=== PATIENT | female | born 1945 | race Two or more races ===

== ENCOUNTER 2021-04-01 08:50 | Inpatient (IN) | payer OTHER ==
[~2021-04-01] VITALS: Ht 160 cm; Wt 58.1 kg
[2021-04-01] MEDS ORDERED: COZAAR50 MG PO (09:02)
[2021-04-01] MEDS ORDERED: CRESTOR40 MG PO (09:02)
[2021-04-01] MEDS ORDERED: NORVASC2.5 M1 PO (09:02)
[2021-04-01] MEDS ORDERED: PLAVIX75 MG PO (09:02)
[2021-04-01] MEDS ORDERED: PRAVASTATIN SOD20 MG PO (09:03)
--- NOTE | 2021-04-01 09:14 | NUR ---
PACIENTE ALERTA Y ORIENTADA REFIERE QUE DESDE WARD PRESENTA TAQUICARDIA, HBP Y LBP, MAREOS Y PRESION EN EL PECHO. AL MOMENTO DEL TRIAGE REFIERE SENTIR MAREOS, SE REALIZA EKG Y SE PRESENTA A DR DE TURNO, SE MONITOREAN S/V Y SE UBICA EN CAMA 07.
--- NOTE | 2021-04-01 09:48 | NUR ---
PACIENTE EVALUADA POR DR YADIRA RIVERA [facility] [place] [facility], RN L.MEJIA ORIENTA PACIENTE SOBRE EL MISMO Y REFIERE ENTENDER, LE JOE MUESTRAS DE LABORATORIO Y LE CANALIZA BAJO MEDIDAS ASEPTICAS. SE MARK PACIENTE BAJO OBSERVACION POR CAMBIOS SIGNIFICATIVOS.
--- NOTE | 2021-04-01 12:32 | NUR ---
DR MAY MIGUEL DA ORDEN DE UBICAR A PACIENTE EN AREA DE CRITICO. LA MISMA SE UBICA EN CAMA #3 CONECTADA A MONITOR CARDIACO, RECIBIENDO O2 ASISTIDO POR MEDIO DE CANULA NASAL A 3L/MIN RICHA ORDEN MEDICAS. S/V ESTABLES AL MOMENTO. SE JOE TRAZADO DE MONITOR SE ADJUNTA A EXPEDIENTE. PENDIENTE CONSULTA CON MEDICINA INTERNA EL DR. REMINGTON MARKS Y CARDIOLOGO EL DR. REGAN MAN. SE MANTIENE EN OBSERVACION POR CAMBIOS.
--- NOTE | 2021-04-01 15:15 | NUR ---
SE RECIBE PTE FEMENINA ALERTA Y ORIENTADA EN LAS DMITRIY ESFERAS DEL TURNO ANTERIOR; EN CAMA #3 DE UNIDAD DE CRITICO. PTE CON BUEN PATRON RESPIRATORIO CON CANULA NASAL A 3LT/MIN SATURANDO AL 100% Y NO REFIERE DOLOR. VENOPUNCION PATENTE EN ANTEBRAZO R+ CON ANGIO #20, PATENTE VERNELL DE EDEMA Y ERITEMA RECIBIENDO TERAPIA DE IVFS 0.9NSS BAJANDO A 100ML/HR. PTE ORINANDO ESPONTANEO, SE ORIENTA SOBRE PROTOCOLO DE UNIDAD Y TRATAMIENTO REFIERE COMPRENDER. PTE EN CAMA NIVEL MAS BAJO CON BARANDAS ELEVADAS Y FRENOS COLOCADOS POR SEGURIDAD. PENDIENTE CONSULTA CON Y AMBAS NOTIFICADAS. SE KARY Y REPORTAN S/V, SE MANTIENE BAJO OBSERVACION POR CAMBIOS EN HUSTON CONDICION.
[2021-04-01] MEDS ORDERED: NEURONTIN300 MG PO (18:32)
[2021-04-02] MEDS ORDERED: MAXIMUM D3325 MCG (10:29)
[2021-04-02] MEDS ORDERED: CLONAZEPAM0.5 MG (10:30)
[2021-04-02] MEDS ORDERED: CETIRIZINE HCL10 MG (10:30)
[2021-04-02] MEDS ORDERED: FENOFIBRATE48 MG (10:30)
[2021-04-02] MEDS ORDERED: FAMOTIDINE40 MG (10:31)
[2021-04-03] MEDS ORDERED: LIPITOR40 MG PO (20:12)
[2021-04-03] MEDS ORDERED: LOSARTAN POTASS50 MG PO (20:12)
[2021-04-03] MEDS ORDERED: PEPCID AC20 MG PO (20:12)
[2021-04-03] MEDS ORDERED: ISOSORBIDE DINI20 MG PO (20:12)
[2021-04-03] MEDS ORDERED: BRILINTA90 MG PO (20:12)
[2021-04-03] MEDS ORDERED: BISACODYL5 MG PO (20:12)
== END 2021-04-04 07:33 | disposition home or self-care (01) | DRG 282 ==
LOC: ER 08:50 → MEDI 22:02
PROVIDERS: ADMIT Internal Medicine; ATTEND Internal Medicine
PROC: B24BZZZ Ultrasonography of Heart with Aorta (ICD-10-PCS; 2021-04-01)
PROC: BW28ZZZ Computerized Tomography (CT Scan) of Head (ICD-10-PCS; 2021-04-01)
PROC: 4A12X4Z Monitoring of Cardiac Electrical Activity, External Approach (ICD-10-PCS; principal; 2021-04-02)
DX: I24.9 Acute ischemic heart disease, unspecified (principal); I21.4 Non-ST elevation (NSTEMI) myocardial infarction; I35.0 Nonrheumatic aortic (valve) stenosis; E86.0 Dehydration; E87.8 Other disorders of electrolyte and fluid balance, not elsewhere classified; I95.89 Other hypotension; K59.09 Other constipation; I10 Essential (primary) hypertension; E11.69 Type 2 diabetes mellitus with other specified complication; Z79.4 Long term (current) use of insulin; E78.49 Other hyperlipidemia; Z20.822 Contact with and (suspected) exposure to COVID-19

== ENCOUNTER 2023-04-05 13:57 | Emergency (ER) | payer OTHER ==
[~2023-04-05] VITALS: Ht 160 cm; Wt 56.7 kg
[~2023-04-05 13:57] MED LIST: BISACODYL5 MG PO; BRILINTA90 MG PO; CETIRIZINE HCL10 MG; CLONAZEPAM0.5 MG; COZAAR50 MG PO; CRESTOR40 MG PO; FAMOTIDINE40 MG; FENOFIBRATE48 MG; ISOSORBIDE DINI20 MG PO; LIPITOR40 MG PO; LOSARTAN POTASS50 MG PO; MAXIMUM D3325 MCG; NEURONTIN300 MG PO; NORVASC2.5 M1 PO; PEPCID AC20 MG PO; PLAVIX75 MG PO; PRAVASTATIN SOD20 MG PO
[2023-04-05] MEDS ORDERED: MEPERIDINE HCL 25 MG/ML AMPUL IM STA (15:46)
[2023-04-05] MEDS ORDERED: 0.9 % SODIUM CHLORIDE 1,000 ML IV STA (15:47)
[2023-04-05 16:27] LABS: HEMATOCRIT 39.6 % (36.0-45.00); HEMOGLOBIN 13.4 g/dL (12.0-15.00); MEAN CELL VOLUME 91.3 fL (80.00-100.00); MEAN CORPUSCULAR HEMOGLOBIN 30.9 pg (27.00-32.0); MEAN CORPUSCULAR HGB CONC 33.8 g/dl (32.0-36.0); PLATELET COUNT 190 K/uL (150-450); RED BLOOD COUNT 4.33 M/uL (4.00-6.00); RED CELL DISTRIBUTION WIDTH 13.5 % (11.5-14.5)
[2023-04-05 16:33] LABS: PH,URINE 7.5 (5.0-8.0); URINE APPEARANCE Clear; URINE BILIRRUBIN Negative (NEGATIVE); URINE BLOOD Negative; URINE COLOR Yellow; URINE GLUCOSE Negative (NEGATIVE); URINE LEUKOCYTE Negative; URINE NITRATE Negative; URINE PROTEIN Negative (NEGATIVE); URINE UROBILINOGEN 0.2 E.U./dl
[2023-04-05 16:34] LABS: URINE RBC 4.1 uL (0.0-20.8)
[2023-04-05 16:36] LABS: URINE BACTERIA 1.2 uL (0.0-1933); URINE WBC 0.1 uL (0.0-23.2)
[2023-04-05 16:58] LABS: ALBUMIN 3.8 gm/dL (3.4-5.0); BILIRUBIN TOTAL 1.1 mg/dL (0.3-1.2); BILIRUBIN,CONJUGATED 0.2 mg/dL (0.0-0.2); BILIRUBIN,UNCONJUGATED 0.9 mg/dL (0.0-0.6); CALCIUM 9.5 mg/dL (8.5-10.1); CREATININE SERUM 0.64 mg/dL (0.55-1.02); GFR 89.74; POTASSIUM 4.51 mEq/L (3.5-5.1); TOTAL PROTEIN 6.6 gm/dL (6.4-8.2)
[2023-04-05] MEDS ORDERED: INTESTINEX680 M1 PO (18:13)
[2023-04-05] MEDS ORDERED: ANUSOL-HC30 G2 TOP (18:13)
[2023-04-05] MEDS ORDERED: DICY20TA PO (18:13)
== END 2023-04-05 18:23 | disposition home or self-care (01) ==
LOC: ER 13:58
PROVIDERS: General Practice
DX: R10.11 Right upper quadrant pain (principal); I10 Essential (primary) hypertension
CPT/HCPCS: 36415; 74018; 74176; 96365; 96372; 99284; J2175; J3490

== ENCOUNTER 2024-04-15 07:00 | Day surgery (SDC) | payer OTHER ==
[~2024-04-15 07:00] MED LIST changes: +ANUSOL-HC30 G2 TOP; +DICY20TA PO; +INTESTINEX680 M1 PO
[2024-04-15] MEDS ORDERED: ENALAPRILAT DIHYDRATE 1.25 MG/ML VIAL IV ONE (10:00)
[2024-04-15] MEDS ORDERED: MIDAZOLAM HCL 2 MG/2 ML VIAL IV ONE (10:00)
[2024-04-15] MEDS ORDERED: fentaNYL CITRATE 50 MCG/ML AMPUL IV ONE (10:00)
[2024-04-15] MEDS ORDERED: DIPHENHYDRAMINE HCL 50 MG/ML VIAL 1ML IV ONE (10:00)
== END 2024-04-15 12:00 | disposition home or self-care (01) ==
LOC: AMB-ENDOS 07:00
PROVIDERS: ATTEND Surgery
DX: K57.30 Diverticulosis of large intestine without perforation or abscess without bleeding (principal); K59.00 Constipation, unspecified; R10.9 Unspecified abdominal pain; K64.8 Other hemorrhoids